=== PATIENT | male | born 1950 | race Caucasian/White ===

== ENCOUNTER → 2020-03-30 14:14 | Outpatient (BNVA) | payer BC, MEDICARE, SELFPAY | PROVIDERS: PCP Internal Medicine Medical Oncology; Referring Provider Internal Medicine Medical Oncology; Visit Provider Urology | DX: N40.1 Benign prostatic hyperplasia with lower urinary tract symptoms (principal); N13.8 Other obstructive and reflux uropathy | CPT/HCPCS: 51798 ==

== ENCOUNTER 2021-03-19 07:08 | Outpatient (REF) | payer BC, MEDICARE, SELFPAY ==
[2021-03-19 07:33] LABS: MANUAL DIFF FLAG NO
[2021-03-19 07:46] LABS: Basophils Absolute Auto 0.1 X10*3/uL (0.0-0.2); Basophils Percent Auto 0.9 % (0-2); Eosinophils Absolute Auto 0.2 X10*3/uL (0.0-0.4); Eosinophils Percent Auto 2.9 % (0-4); Hematocrit 45.3 % (42-52); Hemoglobin 15.4 g/dl (14.0-18.0); Imm Gran Abs Auto 0.02 X10*3/uL (0.00-0.03); Imm Gran Pct Auto 0.3 % (0.0-0.4); Lymphocytes Absolute Auto 1.5 X10*3/uL (1.2-4.9); Lymphocytes Percent Auto 22.7 % (20-40); Mean Corpuscular Hemoglobin 30.2 pg (27.0-33.0); Mean Corpuscular Volume 88.8 fL (80-98); Mean Platelet Volume 9.8 fL (9.4-12.4); Monocytes Absolute Auto 0.8 X10*3/uL (0.1-1.2); Monocytes Percent Auto 11.3 % (2-11); Neutrophils Absolute Auto 4.1 X10*3/uL (2.0-8.3); Neutrophils Percent Auto 61.9 % (45-73); Platelet Count 222 X10*3/uL (160-400); Red Cell Distribution Width 12.6 % (11.0-16.0); White Blood Count 6.7 X10*3/uL (4.8-10.8)
[2021-03-19 08:17] LABS: Alanine Aminotransferase 28 U/L (0-40); Alkaline Phosphatase 61 U/L (39-117); Anion Gap 10 (12-20); Aspartate Amino Transferase 26 U/L (5-37); Bilirubin Total 0.9 mg/dL (0.0-1.0); Blood Urea Nitrogen 17 mg/dL (9-16); Calcium 8.9 mg/dL (8.4-10.2); Carbon Dioxide 26 mmol/L (22-29); Chloride 105 mmol/L (96-108); Cholesterol 143 mg/dL; Estimated Glomerular Filt Rate > 60; Glucose Fasting 106 mg/dL (60-99); HDL Cholesterol 37 mg/dL; LDL Cholesterol Calculated 95 mg/dl; Sodium 137 mmol/L (135-145); Total Protein 6.8 g/dL (6.5-8.0); Triglycerides 59 mg/dL
[2021-03-19 08:37] LABS: PSA,Total (Free>4and<10) 2.35 ng/mL (0.00-4.00)
== END 2021-03-19 07:09 | disposition home or self-care (01) ==
LOC: HO.LAB 07:08
PROVIDERS: Absent Provider Urology; PCP Internal Medicine Medical Oncology; Visit Provider Internal Medicine Medical Oncology
DX: N40.1 Benign prostatic hyperplasia with lower urinary tract symptoms (principal); N13.8 Other obstructive and reflux uropathy; E78.5 Hyperlipidemia, unspecified; E66.3 Overweight; Z12.5 Encounter for screening for malignant neoplasm of prostate
CPT/HCPCS: 36415; 80053; 80061; 84153; 85025

== ENCOUNTER → 2021-03-29 09:51 | Outpatient (BNVA) | payer BC, MEDICARE, SELFPAY | PROVIDERS: PCP Internal Medicine Medical Oncology; Visit Provider Urology ==

== ENCOUNTER → 2021-05-15 15:26 | Outpatient (BNVA) | payer BC, MEDICARE, SELFPAY | PROVIDERS: PCP Internal Medicine Medical Oncology; Visit Provider Urology ==

== ENCOUNTER → 2021-09-18 14:58 | Outpatient (REF) | payer BC, MEDICARE, SELFPAY ==
--- NOTE | 2021-09-18 15:02 | HM_ITS ---
Conclusion: 1. Patient was monitored for total period of 3 days and 11 hours 2. Baseline rhythm is normal sinus rhythm with average heart of 71 beats per minute 3. No significant pauses or bradycardia noted 4. 8 short runs of supra tachycardia, longest lasting 10 beats 5. Total of 1045 PACs accounting for 0.34% total burden account for occasional PACs 6. No patient reported events MTDD
== END ==
LOC: HO.CARD 14:58
PROVIDERS: PCP Internal Medicine Medical Oncology; Visit Provider Internal Medicine Medical Oncology
DX: R00.1 Bradycardia, unspecified (principal); I48.20 Chronic atrial fibrillation, unspecified
CPT/HCPCS: 93242

== ENCOUNTER → 2022-07-16 09:18 | Outpatient (BNVA) | payer BC, SELFPAY | PROVIDERS: PCP Internal Medicine Medical Oncology; Visit Provider Urology | DX: N40.1 Benign prostatic hyperplasia with lower urinary tract symptoms (principal); Z12.5 Encounter for screening for malignant neoplasm of prostate; R33.9 Retention of urine, unspecified; N52.9 Male erectile dysfunction, unspecified | CPT/HCPCS: 51798 ==

== ENCOUNTER 2022-08-08 07:17 | Outpatient (REF) | payer BC, SELFPAY ==
[2022-08-08 07:28] LABS: MANUAL DIFF FLAG NO
[2022-08-08 07:46] LABS: Basophils Percent Auto 0.5 % (0-2); Eosinophils Absolute Auto 0.2 X10*3/uL (0.0-0.4); Eosinophils Percent Auto 2.2 % (0-4); Hematocrit 44.4 % (42.0-52.0); Hemoglobin 14.9 g/dl (14.0-18.0); Imm Gran Abs Auto 0.03 X10*3/uL (0.00-0.03); Imm Gran Pct Auto 0.4 % (0.0-0.4); Lymphocytes Absolute Auto 3.3 X10*3/uL (1.2-4.9); Lymphocytes Percent Auto 45.1 % (20-40); Mean Corpuscular HGB Conc 33.6 g/dl (31.0-36.0); Mean Corpuscular Hemoglobin 30.1 pg (27.0-33.0); Mean Corpuscular Volume 89.7 fL (80.0-98.0); Mean Platelet Volume 9.9 fL (9.4-12.4); Monocytes Absolute Auto 0.7 X10*3/uL (0.1-1.2); Monocytes Percent Auto 9.3 % (2-11); Neutrophils Absolute Auto 3.1 x10*3/uL (2.0-8.3); Neutrophils Percent Auto 42.5 % (45-73); Platelet Count 218 X10*3/uL (160-400); Red Blood Count 4.95 X10*6/uL (4.60-5.80); Red Cell Distribution Width 13.4 % (11.0-16.0); White Blood Count 7.3 X10*3/uL (4.8-10.8)
[2022-08-08 08:28] LABS: Alanine Aminotransferase 36 U/L (0-40); Albumin Level 3.9 g/dL (3.5-5.0); Alkaline Phosphatase 63 U/L (39-117); Anion Gap 11 (12-20); Aspartate Amino Transferase 52 U/L (5-37); Bilirubin Total 1.2 mg/dL (0.0-1.0); Blood Urea Nitrogen 16 mg/dL (9-16); Calcium 8.6 mg/dL (8.4-10.2); Carbon Dioxide 26 mmol/L (22-29); Chloride 105 mmol/L (96-108); Cholesterol 145 mg/dL; Estimated Glomerular Filt Rate > 60; Glucose Fasting 105 mg/dL (60-99); HDL Cholesterol 34 mg/dL; LDL Cholesterol Calculated 98 mg/dl; Sodium 138 mmol/L (135-145); Total Protein 6.9 g/dL (6.5-8.0); Triglycerides 67 mg/dL
[2022-08-08 08:33] LABS: PSA,Total (Free>4and<10) 2.24 ng/mL (0.00-4.00)
[2022-08-08 08:39] LABS: Vitamin B12 335 pg/mL (200-900)
== END 2022-08-08 07:18 | disposition home or self-care (01) ==
LOC: HO.LAB 07:17
PROVIDERS: Urology; PCP Internal Medicine Medical Oncology; Visit Provider Internal Medicine Medical Oncology
DX: Z12.5 Encounter for screening for malignant neoplasm of prostate (principal); E78.5 Hyperlipidemia, unspecified; N40.1 Benign prostatic hyperplasia with lower urinary tract symptoms
CPT/HCPCS: 36415; 80053; 80061; 82607; 84153; 85025

== ENCOUNTER 2023-01-14 15:02 | Outpatient (AMB) | payer BC, SELFPAY ==
--- NOTE | 2023-01-14 15:05 | MHC.OFFVIS ---
Intake Intake Visit Reasons: 6m follow up Intake Note: Pt presents to the office today for a 6 month follow-up. Allergies Iodinated Contrast Media [IV CONTRAST] Allergy (Unknown, Verified 01/14/23 15:06) ABD EDEMA meperidine [From DEMEROL] Allergy (Unknown, Verified 01/14/23 15:06) DRY HEAVES penicillin V Allergy (Unknown, Verified 01/14/23 15:06) Unknown Penicillins [PENICILLINS] Allergy (Unknown, Verified 01/14/23 15:06) HIVES Cardiac Dye Allergy (Unknown, Uncoded 01/14/23 15:06) Unknown Medication List - Last Reconciled 01/14/23 by Perry Banegas MD atorvastatin 10 mg PO DAILY bisoprolol-hydrochlorothiazide 2.5-6.25 mg 1 tab PO DAILY sildenafil (Viagra) 100 mg PO DAILY PRN 30 days terazosin 5 mg PO DAILY HPI HPI Comments History of Present Illness Details Carter Lewis is a pleasant male. He is a patient of Dr Pinedo. He is seen for the following urologic conditions. - lower urinary tract symptoms - erectile dysfunction Bladder emptying stable Weak stream in the morning Prior bladder scan 130 cc current scan Lower Urinary Tract Symptoms: ? Current visit is for?further evaluation of, lower urinary tract symptoms, predominate obstructive symptoms, ?- symptoms controlled on terazosin - prior medications include finasteride - ceased due to side effects ? Current treatment includes?02/23 , medication, alpha himanshu, terazosin 5mg.? Prostate Symptom Score?02/23 , Mild (0-8), Bother 2.? Symptoms include?02/23 , incomplete emptying, weak stream, and are stable and are improving.? PSA?02/24 2.4, 03/28 2.3, 08/28 2.3 ? Prostate volume?30-50gm.? Erectile dysfunction Responsive to sildenafil Uses up to 200 mg on demand [facility] Medical History Atrial fibrillation Bladder outlet obstruction Chronic prostatitis Combined arterial insufficiency and corporo-venous occlusive erectile dysfunction Difficulty urinating Graves disease HTN (hypertension) Incomplete emptying of bladder Painful urination Weak urinary stream Surgical History History of surgery Social History Patient Tobacco Use Status: Never used Tobacco Review of Systems Const Denies chills and Denies fever(s) Card Reports no additional complaints and Denies syncope Resp Denies cough GI Denies abdominal pain and Denies heartburn Reports as per HPI and Denies change in libido Neuro Denies syncope Psych Denies change in libido Endo Denies change in libido Physical Exam Const General: cooperative, healthy appearing, comfortable and no acute distress Orientation/consciousness: patient oriented x3 HEENT Face and sinus: Yes normal facial exam Mouth: moist mucous membranes Neck Neck: Yes normal visual inspection, Yes full ROM and Yes trachea midline Chest Chest palpation & inspection: normal inspection of the chest Resp Effort & Inspection: normal respiratory effort, able to speak in complete sentences and no respiratory distress GI Inspection: Yes normal to inspection Back/Spine/Pelvis Cervical Spine: normal cervical lordosis Thoracic/Lumbar Spine: thoracic and lumbar spine normal to inspection Skin General skin exam: no rashes or lesions noted Neuro General: patient oriented x3, gait normal, tone normal and moves all extremities Extrem General: Yes normal to inspection and Yes capillary refill normal Assessment & Plan Assessment & Plan (1) Erectile dysfunction: Code(s): N52.9 - Male erectile dysfunction, unspecified (2) BPH loc w urin obs/LUTS: Code(s): N40.1 - Benign prostatic hyperplasia with lower urinary tract symptoms Plan Six month follow-up PSA Orders: Orders Prostate Specific Antigen 6 Months N40.1 - Benign prostatic hyperplasia with lower urinary tract symptoms Medications: Changed From terazosin 5 mg PO DAILY 90 caps 0RF N40.1 - Benign prostatic hyperplasia with lower urinary tract symptoms To terazosin 5 mg PO BEDTIME 90 days 90 caps 1RF N40.1 - Benign prostatic hyperplasia with lower urinary tract symptoms Patient Instructions: Imaging studies, laboratory and physical exam results were discussed and reviewed in detail. No major barriers to patient understanding were identified. An opportunity to ask questions regarding the treatment plan was provided. All questions were answered. The patient expressed understanding and agreement with the above treatment plan. The patient is aware they should contact our office by phone for worsening of their current condition or the appearance of new urologic symptoms. Compliance is encouraged with any medications and followup testing that is ordered. It is a privilege to participate in the urologic care of your patient. If you have any questions or concerns regarding treatment for the above conditions, or other urologic issues, please do not hesitate to contact me. The office telephone contact is [phone]. This note is constructed using voice recognition software. While every effort has been made to ensure accuracy roentgenology teacher errors may have been included. Yours sincerely, Dr Perry Banegas MD, CHAR [facility] - Urology Providers of Expert, Compassionate Care for the Genitourinary System Coding Level of Care Code Est Pt Level 3 (78599) Diagnoses Erectile dysfunction N52.9 BPH loc w urin obs/LUTS N40.1
== END 2023-01-14 15:16 | disposition home or self-care (01) ==
PROVIDERS: Visit Provider Urology
DX: N52.9 Male erectile dysfunction, unspecified (principal); N40.1 Benign prostatic hyperplasia with lower urinary tract symptoms
CPT/HCPCS: 99213

== ENCOUNTER → 2023-01-14 15:02 | Outpatient (BNVA) | payer BC, SELFPAY | PROVIDERS: Visit Provider Urology ==

== ENCOUNTER 2023-07-29 07:05 | Outpatient (REF) | payer BC, SELFPAY ==
[2023-07-29 07:15] LABS: MANUAL DIFF FLAG NO
[2023-07-29 08:02] LABS: Basophils Absolute Auto 0.1 X10*3/uL (0.0-0.2); Basophils Percent Auto 0.9 % (0-2); Eosinophils Absolute Auto 0.5 X10*3/uL (0.0-0.4); Eosinophils Percent Auto 5.8 % (0-4); Hematocrit 46.3 % (42.0-52.0); Hemoglobin 15.4 g/dl (14.0-18.0); Imm Gran Abs Auto 0.03 X10*3/uL (0.00-0.03); Imm Gran Pct Auto 0.4 % (0.0-0.4); Lymphocytes Percent Auto 38.8 % (20-40); Mean Corpuscular HGB Conc 33.3 g/dl (31.0-36.0); Mean Corpuscular Hemoglobin 30.7 pg (27.0-33.0); Mean Corpuscular Volume 92.2 fL (80.0-98.0); Mean Platelet Volume 10.3 fL (9.4-12.4); Monocytes Absolute Auto 0.7 X10*3/uL (0.1-1.2); Monocytes Percent Auto 8.5 % (2-11); Neutrophils Absolute Auto 3.5 x10*3/uL (2.0-8.3); Neutrophils Percent Auto 45.6 % (45-73); Platelet Count 228 X10*3/uL (160-400); Red Blood Count 5.02 X10*6/uL (4.60-5.80); Red Cell Distribution Width 12.7 % (11.0-16.0); White Blood Count 7.8 X10*3/uL (4.8-10.8)
[2023-07-29 08:24] LABS: Alanine Aminotransferase 34 U/L (0-40); Albumin Level 4.1 g/dL (3.5-5.0); Alkaline Phosphatase 54 U/L (39-117); Anion Gap 9 (12-20); Aspartate Amino Transferase 35 U/L (5-37); Bilirubin Total 0.8 mg/dL (0.0-1.0); Blood Urea Nitrogen 15 mg/dL (9-16); Calcium 9.5 mg/dL (8.4-10.2); Carbon Dioxide 31 mmol/L (22-29); Chloride 105 mmol/L (96-108); Cholesterol 142 mg/dL (<200); Estimated Glomerular Filt Rate > 60; Glucose Fasting 99 mg/dL (60-99); HDL Cholesterol 40 mg/dL (>40); LDL Cholesterol Calculated 90 mg/dL (<100); Sodium 141 mmol/L (135-145); Total Protein 7.2 g/dL (6.5-8.0); Triglycerides 63 mg/dL (<150)
[2023-07-29 08:41] LABS: Prostate Specific Antigen 2.26 ng/mL (<0.05-4.0)
== END 2023-07-29 07:06 | disposition home or self-care (01) ==
LOC: HO.LAB 07:05
PROVIDERS: PCP Internal Medicine Medical Oncology; Visit Provider Internal Medicine Medical Oncology
DX: Z00.00 Encounter for general adult medical examination without abnormal findings (principal); Z12.5 Encounter for screening for malignant neoplasm of prostate; N40.1 Benign prostatic hyperplasia with lower urinary tract symptoms; E66.3 Overweight; E78.5 Hyperlipidemia, unspecified
CPT/HCPCS: 36415; 80053; 80061; 84153; 85025

== ENCOUNTER 2023-08-19 13:12 | Outpatient (AMB) | payer BC, SELFPAY ==
--- NOTE | 2023-08-19 13:14 | A.OFFVIS_ITS ---
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 Intake Note: Patient presents today for a follow-up on PSA Meds- Terazosin, Sildenafil Allergies to Antibiotic- Penicillin Blood Thinner- None Post Void Residual: 26ml Manager Express Required: No Accompanied by: Self / Same As Patient Allergies Iodinated Contrast Media [IV CONTRAST] Allergy (Unknown, Verified 08/19/23 13:21) ABD EDEMA meperidine [From DEMEROL] Allergy (Unknown, Verified 08/19/23 13:21) DRY HEAVES penicillin V Allergy (Unknown, Verified 08/19/23 13:21) Unknown Penicillins [PENICILLINS] Allergy (Unknown, Verified 08/19/23 13:21) HIVES Cardiac Dye Allergy (Unknown, Uncoded 08/19/23 13:21) Unknown Medication List - Last Reconciled 08/19/23 by Perry Banegas MD atorvastatin 10 mg PO DAILY bisoprolol-hydrochlorothiazide 2.5-6.25 mg 1 tab PO DAILY sildenafil (Viagra) 100 mg PO DAILY PRN 30 days terazosin 5 mg PO BEDTIME 90 days HPI HPI Comments History of Present Illness Details Carter Lewis is a pleasant male. He is a patient of Dr Pinedo. He is seen for the following urologic conditions. - lower urinary tract symptoms - erectile dysfunction Bladder emptying stable Continues with terazosin Prior bladder scan 130 cc current scan 30 cc Refill medications Lower Urinary Tract Symptoms: ? Current visit is for?further evaluation of, lower urinary tract symptoms, predominate obstructive symptoms, ?- symptoms controlled on terazosin - prior medications include finasteride - ceased due to side effects ? Current treatment includes?02/23 , medication, alpha himanshu, terazosin 5mg.? Prostate Symptom Score?02/23 , Mild (0-8), Bother 2.? Symptoms include?02/23 , incomplete emptying, weak stream, and are stable and are improving.? PSA?02/24 2.4, 03/28 2.3, 08/28 2.3 ? Prostate volume?30-50gm.? Erectile dysfunction Responsive to sildenafil Uses up to 200 mg on demand PFSH Medical History Painful urination Difficulty urinating Graves disease Atrial fibrillation HTN (hypertension) Combined arterial insufficiency and corporo-venous occlusive erectile dysfunction Chronic prostatitis Incomplete emptying of bladder Bladder outlet obstruction Weak urinary stream Surgical History History of surgery Social History Patient Tobacco Use Status: Never used Tobacco Review of Systems Const Denies chills and Denies fever(s) Card Reports no additional complaints and Denies syncope Resp Denies cough GI Denies abdominal pain and Denies heartburn Reports as per HPI and Denies change in libido Neuro Denies syncope Psych Denies change in libido Endo Denies change in libido Physical Exam Const General: cooperative, healthy appearing, comfortable and no acute distress Orientation/consciousness: patient oriented x3 HEENT Face and sinus: Yes normal facial exam Mouth: moist mucous membranes Neck Neck: Yes normal visual inspection, Yes full ROM and Yes trachea midline Chest Chest palpation & inspection: normal inspection of the chest Resp Effort & Inspection: normal respiratory effort, able to speak in complete sentences and no respiratory distress GI Inspection: Yes normal to inspection Back/Spine/Pelvis Cervical Spine: normal cervical lordosis Thoracic/Lumbar Spine: thoracic and lumbar spine normal to inspection Skin General skin exam: no rashes or lesions noted Neuro General: patient oriented x3, gait normal, tone normal and moves all extremities Extrem General: Yes normal to inspection and Yes capillary refill normal Office Procedures Post Void Residual Post Residual Void Post Void Residual (PVR): 26 15301-Pjrf Void Residual by ultrasound Assessment & Plan Assessment & Plan (1) Erectile dysfunction: Code(s): N52.9 - Male erectile dysfunction, unspecified (2) Incomplete bladder emptying: Code(s): R33.9 - Retention of urine, unspecified (3) BPH loc w urin obs/LUTS: Code(s): N40.1 - Benign prostatic hyperplasia with lower urinary tract symptoms Plan Twelve month follow-up PVR Orders: Orders AMB Post Void Residual by ultrasound Today R33.9 - Retention of urine, unspecified Medications: Refilled sildenafil (Viagra) administer 30 minutes to 4 hours before activity 100 mg PO DAILY PRN 30 tabs 1RF sexual activity 30 days terazosin 5 mg PO BEDTIME 90 caps 3RF 90 days N40.1 - Benign prostatic hyperplasia with lower urinary tract symptoms Patient Instructions: Imaging studies, laboratory and physical exam results were discussed and reviewed in detail. No major barriers to patient understanding were identified. An opportunity to ask questions regarding the treatment plan was provided. All questions were answered. The patient expressed understanding and agreement with the above treatment plan. The patient is aware they should contact our office by phone for worsening of their current condition or the appearance of new urologic symptoms. Compliance is encouraged with any medications and followup testing that is ordered. It is a privilege to participate in the urologic care of your patient. If you have any questions or concerns regarding treatment for the above conditions, or other urologic issues, please do not hesitate to contact me. The office telephone contact is [phone]. This note is constructed using voice recognition software. While every effort has been made to ensure accuracy avionics systems repairer errors may have been included. Yours sincerely, Dr Perry Banegas MD, [facility] - Urology Providers of Expert, Compassionate Care for the Genitourinary System Coding Level of Care Code Est Pt Level 3 (70773) Diagnoses Erectile dysfunction N52.9 Incomplete bladder emptying R33.9 BPH loc w urin obs/LUTS N40.1 CPT Codes Post Residual Void - PVR CPT Code: 53784-Muqd Void Residual by ultrasound ([id number])
== END 2023-08-19 13:38 | disposition home or self-care (01) ==
PROVIDERS: PCP Internal Medicine Medical Oncology; Visit Provider Urology
DX: N52.9 Male erectile dysfunction, unspecified (principal); R33.9 Retention of urine, unspecified; N40.1 Benign prostatic hyperplasia with lower urinary tract symptoms
CPT/HCPCS: 99213

== ENCOUNTER → 2023-08-19 13:12 | Outpatient (BNVA) | payer BC, SELFPAY | PROVIDERS: PCP Internal Medicine Medical Oncology; Visit Provider Urology | DX: N52.9 Male erectile dysfunction, unspecified (principal); N40.1 Benign prostatic hyperplasia with lower urinary tract symptoms; N13.8 Other obstructive and reflux uropathy; R33.8 Other retention of urine | CPT/HCPCS: 51798 ==

== ENCOUNTER 2024-09-16 14:19 | Outpatient (AMB) | payer BC, SELFPAY ==
--- NOTE | 2024-09-16 14:32 | MHC.OFFVIS ---
Intake Visit Reasons: 1yr/PVR Intake Note: Patient is present for 1Y/PVR Urology Medication:SILDENAFIL,TERAZOSIN Antibiotic Allergy:PENICILLINS Blood Thinner:NONE TODAY'S PVR:34ML'S Research Technologist Required: No Allergies Iodinated Contrast Media [IV CONTRAST] Allergy (Unknown, Verified 09/16/24 14:33) ABD EDEMA meperidine [From DEMEROL] Allergy (Unknown, Verified 09/16/24 14:33) DRY HEAVES penicillin V Allergy (Unknown, Verified 09/16/24 14:33) Unknown Penicillins [PENICILLINS] Allergy (Unknown, Verified 09/16/24 14:33) HIVES Cardiac Dye Allergy (Unknown, Uncoded 09/16/24 14:33) Unknown HPI Comments Details: Carter Lewis is a pleasant male. He is a patient of Dr Pinedo. He is seen for the following urologic conditions. - lower urinary tract symptoms - erectile dysfunction Bladder emptying stable Continues with terazosin and sildenafil for erections Current bladder scan 35 cc Urinary Symptoms Review - Patient exhibits low urinary tract symptoms. - Bladder appears to be emptying effectively. - Urinary analysis from dipstick testing shows no abnormalities. - Patient has been using terazosin and reports good results. Lower Urinary Tract Symptoms: ? Current visit is for?further evaluation of, lower urinary tract symptoms, predominate obstructive symptoms, ?- symptoms controlled on terazosin - prior medications include finasteride - ceased due to side effects ? Current treatment includes?02/23 , medication, alpha himanshu, terazosin 5mg.? Prostate Symptom Score?02/23 , Mild (0-8), Bother 2.? Symptoms include?02/23 , incomplete emptying, weak stream, and are stable and are improving.? PSA?02/24 2.4, 03/28 2.3, 08/28 2.3, 08/01 2.3 ? Prostate volume?30-50gm.? Erectile dysfunction Responsive to sildenafil Uses up to 200 mg on demand PFSH Medical History Painful urination Difficulty urinating Graves disease Atrial fibrillation HTN (hypertension) Combined arterial insufficiency and corporo-venous occlusive erectile dysfunction Chronic prostatitis Incomplete emptying of bladder Bladder outlet obstruction Weak urinary stream Surgical History History of surgery Social History Patient Tobacco Use Status: Never used Tobacco Review of Systems Const Denies chills and Denies fever(s) Card Reports no additional complaints and Denies syncope Resp Denies cough GI Denies abdominal pain and Denies heartburn Reports as per HPI and Denies change in libido Neuro Denies syncope Psych Denies change in libido Endo Denies change in libido Physical Exam Const General: cooperative, healthy appearing, comfortable and no acute distress Orientation/consciousness: patient oriented x3 HEENT Face and sinus: Yes normal facial exam Mouth: moist mucous membranes Neck Neck: Yes normal visual inspection, Yes full ROM and Yes trachea midline Chest Chest palpation & inspection: normal inspection of the chest Resp Effort & Inspection: normal respiratory effort, able to speak in complete sentences and no respiratory distress GI Inspection: Yes normal to inspection Back/Spine/Pelvis Cervical Spine: normal cervical lordosis Thoracic/Lumbar Spine: thoracic and lumbar spine normal to inspection Skin General skin exam: no rashes or lesions noted Neuro General: patient oriented x3, gait normal, tone normal and moves all extremities Extrem General: Yes normal to inspection and Yes capillary refill normal Office Procedures Post Void Residual Post Residual Void Post Void Residual (PVR): 34 [id number]-Tmew Void Residual by ultrasound Assessment & Plan Assessment & Plan (1) Weak urinary stream: Code(s): R39.12 - Poor urinary stream Category: Medical (2) Erectile dysfunction: Code(s): N52.9 - Male erectile dysfunction, unspecified Category: Medical Plan Plan Continue terazosin for lower urinary tract symptom management. Refill sildenafil 200 mg for erectile dysfunction, sent to [facility]. Order PSA test for next year with an annual follow-up. Efficient management noted; no new symptoms. Next appointment scheduled in 12 months or per any new developments. Discussion Notes The consultation covered the patient's effective response to terazosin for managing lower urinary tract symptoms and sildenafil for erectile dysfunction. I reviewed the benefits of continuing the current dosages and timing. For future evaluations, a PSA test was ordered for the following year to monitor prostate health, with the option for cancellation if already performed by the patient's primary care physician. We discussed that the patient's medications would be refilled promptly and reminders for the follow-up were confirmed. Patient Instructions - Continue taking terazosin as prescribed. - Use sildenafil 200 mg on demand for erectile dysfunction. - Await notification for PSA test in the next year. - The refill for sildenafil has been sent to the [facility] pharmacy. - Follow up in one year for re-evaluation unless new symptoms arise. - Contact the office with any changes in urinary symptoms or if issues arise with medication. Orders: Orders AMB Urinalysis Automated Today Z13.9 - Encounter for screening, unspecified Prostate Specific Antigen 12 Months N40.1 - Benign prostatic hyperplasia with lower urinary tract symptoms Patient Instructions: This note is constructed using voice recognition software. While every effort has been made to ensure accuracy mobile sales assistant errors may have been included. Imaging studies, laboratory and physical exam results were discussed and reviewed in detail. No major barriers to patient understanding were identified. An opportunity to ask questions regarding the treatment plan was provided. All questions were answered. The patient expressed understanding and agreement with the above treatment plan. The patient is aware they should contact our office by phone for worsening of their current condition or the appearance of new urologic symptoms. Compliance is encouraged with any medications and followup testing that is ordered. It is a privilege to participate in the urologic care of your patient. If you have any questions or concerns regarding treatment for the above conditions, or other urologic issues, please do not hesitate to contact me. The office telephone contact is [phone]. Sincerely, Dr Perry Banegas MD, [facility] - Urology Compassionate Specialist Care for the Genitourinary System Coding Level of Care Code Est Pt Level 4 (93486) Complex EM visit Add On G2211 Diagnoses Weak urinary stream R39.12 Erectile dysfunction N52.9 CPT Codes Post Residual Void - PVR CPT Code: 04714-Orix Void Residual by ultrasound ([id number])
--- OUTSIDE RECORDS SUMMARY | 2024-09-16 14:40 | XMS_ITS ---
Author Organization Ryan Pinedo III, MD Address [address] [place] [address] Care Team Providers Care Personnel Specialist Name Role Phone Ryan Pinedo Primary Care Provider Allergies Allergen (clinical drug ingredient) Drug/Non Drug Allergy documented on EMR Reaction Allergy Type Onset Date Status Penicillin Unknown Drug Allergy Active Gadolinium and/or gadolinium compound (FN) Gadolinium Derivatives Unknown Drug Allergy Activ e meperidine Demerol Unknown Drug Allergy Active REASON FOR VISIT Annual Exam Medications Medication SIG (Take, Route, Frequency, Duration) Notes Start Date End Date Status Terazosin HCl 5 MG 1 capsule at bedtime Orally Once a day Active Bisoprolol-hydroCHLOROthiaz faisal 2.5-6.25 MG TAKE 1 TABLET BY MOUTH ONCE DAILY Active dexAMETHasone 4 MG 1 tablet Orally ever y 12 hrs 08/07/2021 Active Atorvastatin Calcium 10 MG TAKE 1 TABLET BY MOUTH ONCE DAILY Active Aspirin 81mg 1 tablet once a day Active Nehalem 3 1000 MG 1 capsule with a jose e l Orally Once a day Active Vitamin B 12 100 MCG as directed Orally Active Finasteride 5 MG 1 tablet Orally Once a day Active Clotrimazole-Betamethasone 1-0.05 % 1 application to affected area Externally Twice a day 03/22/2018 Active Social History Tobacco Use: Social History Observation Description Date Details (start date - stop date) Never Smoker NA - NA Sex Assigned At : Social History Observation Description Sex Assigned At Male Tobacco Use/Smoking Question Answer Notes Patient is a nonsmoker Additional Findings: Tobacco Non-User Aggressive non-smoker Vital Signs Temperature 97.0 degrees Fahrenheit 04/15/20 24 Blood pressure systolic 135 mm Hg 04/15/20 24 Blood pressure diastolic 80 mm Hg 024 Heart Rate 70 /min 04/15/2024 Height 74 in 04/15/2024 Weight 210 lbs 04/15/2024 BMI 26.96 kg/m2 04/15/2024 Encounters Encounter Location Date Provider Diagnosis Ryan Pinedo III, MD [address] [place] [address] [place] [address] 04/15/2024 Ryan Pinedo Hyperlipidemia E78.5 ; History of atrial fibrillation Z86.79 ; Benign prostatic hyperplasia with lower urinary tract symptoms N40.1 ; Overweight E66.3 and Graves disease E05.00 Assessments Encounter Date Diagnosis (ICD Code) Assessment Notes Treat ment Notes Treatment Clinical Notes 04/15/2024 Hyperlipidemia (ICD-10 - E78.5) His lipids are currently stable and no change in his medications was made today. 04/15/2024 History of atrial fibrillation (ICD-10 - Z86.79) He is in regular sinus rhythm today. He has had a cardiac ablation. 04/15/2024 Benign prostatic hyperplasia with lower urinary tract symptoms (ICD-10 - N40.1) He rises from sleep once a night to urinate on the average. We have discussed lifestyle modifications he can make to reduce nocturia. 04/15/2024 Overweight (ICD-10 - E66.3) His body mass index is 26. We have discussed diet and nutrition. We made a plan to lose weight at a rate of one half of a pound per week. 04/15/2024 Graves disease (ICD-10 - E05.00) Thyroid function tests will be done periodically. He has been compliant with his medication. He appears to be euthyroid. Plan Of Treatment Medication Medication Name Sig Start Date Stop Date Notes Terazosin HCl 5 MG 1 capsule at bedtime Orally Once a day Bisoprolol-hydroCHLOROthiazi de 2.5-6.25 MG TAKE 1 TABLET BY MOUTH ONCE DAILY dexAMETHasone 4 MG 1 tablet Orally every 12 hrs 08/07/2021 Atorvastatin Calcium 10 MG TAKE 1 TABLET BY MOUTH ONCE DAILY Aspirin 81mg 1 tablet once a day Nehalem 3 1000 MG 1 capsule with a jose e l Orally Once a day Vitamin B 12 100 MCG as directed Orally Finasteride 5 MG 1 tablet Orally Once a day Clotrimazole-Betamethasone 1-0.05 % 1 application to affected area Externally Twice a day 03/22/2018 Pending Test Test Name Order Date PROFILE, FASTING (COMPREHENSIVE METABOLI C) 04/15/2024 PSA, TOTAL 04/15/2024 CBC WITH AUTO DIFF 04/15/2024 Lipid Panel 04/15/2024 Next Appt Details Follow Up: 4 Months, 3 month s, Reason: OV, Routine check-up Provider Name:Ryan Pinedo, 10/07/2024 01:45:00 PM, [address] [facility] [address], [place], [address], Provider Name:Ryan Pinedo, 04/21/2025 01:30:00 PM, [address] [facility], [place], [address], Progress Notes * Carter SAHU FDOB:1950 (73 yo M)Acc No.[id number]:04/15/2024 Progress Notes Patient:?Carter SAHU Provider:?Ryan Pinedo MD :1950???Age:73 Y???Sex:Male Jesus e:04/15/2024 Address:[address] [place] [address] [id number] Subjective: * Chief Complaints: * ???Annual Exam * HPI: ???Depression Screening:?PHQ-9?Little interest or pleasure in doing things?Not at all ?Feeling down, depressed, or hopeless?Not at all ?Trouble falling or staying asleep, or sleeping too much?Not at all ?Feeling tired or having little energy?Not at all ?Poor appetite or overeating?Not at all ?Feeling bad about yourself or that you are a failure, or have let yourself or your family down?Not at all ?Trouble concentrating on things, such as reading the newspaper or watching television?Not at all ?Moving or speaking so slowly that other people could have noticed; or the opposite, being so fidgety or restless that you have been moving around a lot more than usual?Not at all ?Thoughts that you would be better off or of hurting yourself in some way?Not at all ?Total Score?0 ???COVID-19 Screening:?Questions?Have you experienced fever, chills, cough, sore throat, shortness of breath, difficulty breathing, muscle aches, loss of taste or smell??No ?Have you been exposed to the virus within the last 10 days??No ?Have you travelled internationally in the last 10 days??No ?Have you been exposed to COVID-19 in the past??Yes ???Fall Risk Screening:?Fall History?Have you had any falls with injury in the past year??No ?Have you had two or more falls in the past year??No ?Fall Risk Assessment:?No falls in the past year ???SDOH Questions:?SDOH Questions?In the past year have you been worried about losing your housing??No ?In the past year have you or any family members you live with been unable to get any of the following when it was really needed? Check all that apply:?None ???:?The patient, a 73-year-old male, presented to the clinic for a routine check-up. He reported feeling healthy and had no significant complaints. He mentioned that he had almost passed out twice in the past, which was thought to be either heat-related or due to medication. However, he has not had any similar episodes since then. The patient also mentioned that he had a colonoscopy five years ago and is due for another one soon. He has been getting colonoscopies every five years due to a history of adenomatous polyps. The patient also has a history of cardiac ablation done? years ago. Because of palpitations, after his last visit he had a Holter monitor that showed no significant abnormalities. Blood work done April 13, 2024 showed white count 6.8 hematocrit 46.6 platelets 207 glucose 96 BUN 12 creatinine 0.8 for total cholesterol 140 triglycerides 70 HDL 42 LDL 84. * ROS:?General/Constitutional:?pain?only normal aches and pains.?Chills?denies.?Fatigue?admits.?Fever?denies.?ENT:?Decreased hearing?denies.?Respiratory:?Cough?denies.?Cardiovascular:?Chest pain with exertion?denies.?Dyspnea on exertion?denies.?Shortness of breath?denies.?Gastrointestinal:?Constipation?occasional.?Decreased appetite?denies.?Diarrhea?denies.?Heartburn?denies.?Nausea?denies.?Rectal bleeding?denies.?Vomiting?denies.?Hematology:?bruising?denies.?petechiae?denies.?Swollen glands?none have been noted.?Genitourinary:?Frequent urination?once a night.?Musculoskeletal:?Muscle aches?denies.?Painful joints?denies.?Sciatica?denies.?Weakness?denies.?Skin:?Itching?denies.?Rash?denies.?Skin lesion(s)?denies.?Neurologic:?Difficulty speaking?denies.?Dizziness?denies.?Headache?denies.?Low back pain?denies.?Psychiatric:?Depressed mood?denies.? * Medical History:? * Surgical History:?colonoscop y, [facility], 05/2014No history * Hospitalization/Major Diagno stic Procedure:?No history * Family History:?Father: dece ased 89 yrs, cardiac disease.?Mother: 88 yrs, congestive heart failure, diabetes mellitus, artial fibrillation,catracts, had cacncerous node removed from left breast, diagnosed with DM, Cancer.?1 brother(s) , 1 sister(s) . .? A brother has atrial fibrillation and thyroid disease. He is but has no children. * Social History:?Tobacco Use:?Tobacco Use/Smoking?Patient is a?nonsmoker ?Additional Findings: Tobacco Non-User?Aggressive non-smoker ???He was born in [place]. He has been happily for 20 years. He has no children. 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 * Medications:?TakingAtorvasta tin Calcium 10 MG Tablet TAKE 1 TABLET BY MOUTH ONCE DAILY Terazosin HCl 5 MG Capsule 1 capsule at bedtime Orally Once a day Nehalem 3 1000 MG Capsule 1 capsule with a meal Orally Once a day Vitamin B 12 100 MCG Lozenge as directed Orally Bisoprolol-hydroCHLOROthiazide 2.5-6.25 MG Tablet TAKE 1 TABLET BY MOUTH ONCE DAILY Aspirin 81mg tablet 1 tablet once a day Taking Atorvastatin Calcium 10 MG Tablet TAKE 1 TABLET BY MOUTH ONCE DAILY Taking Terazosin HCl 5 MG Capsule 1 capsule at bedtime Orally Once a day Taking Nehalem 3 1000 MG Capsule 1 capsule with a meal Orally Once a day Taking Vitamin B 12 100 MCG Lozenge as directed Orally Taking Bisoprolol-hydroCHLOROthiazide 2.5-6.25 MG Tablet TAKE 1 TABLET BY MOUTH ONCE DAILY Taking Aspirin 81mg tablet 1 tablet once a day Not-Taking/PRNClotrimazole-Betamethasone 1-0.05 % Cream 1 application to affected area Externally Twice a day Finasteride 5 MG Tablet 1 tablet Orally Once a day dexAMETHasone 4 MG Tablet 1 tablet Orally every 12 hrs Medication List reviewed and reconciled with the patientNot-Taking/PRN Clotrimazole-Betamethasone 1-0.05 % Cream 1 application to affected area Externally Twice a day Not-Taking/PRN Finasteride 5 MG Tablet 1 tablet Orally Once a day Not-Taking/PRN dexAMETHasone 4 MG Tablet 1 tablet Orally every 12 hrs Medication List reviewed and reconciled with the patient * Allergies:?DemerolPenicillin Gadolinium Derivativesno[Allergies Verified] Objective: * Vitals:?Ht: 74, Wt:210, BMI: 26.96, BP:135/80, HR:70, Temp:97.0, Wt-k.25. * Examination: ???General Examination: ?GENERAL APPEARANCE:?pleasant, well nourished, well developed, in no acute distress, calm and relaxed, overweight, man.?HEAD:?atraumatic, normocephalic.?EYES:?eomi, perrla, anicteric, conjugate.?EARS:?normal.?NOSE:?septum intact.?ORAL CAVITY:?normal, unremarkable.?NECK/THYROID:?no jugular venous distention, no carotid bruit, thyroid normal.?LYMPH NODES:?no enlarged lymph nodes,spleen normal.?SKIN:?no suspicious lesions, anicteric.?HEART:?no clicks, gallops, murmurs, or rubs, regular rhythm, S1, S2 normal, no s3, or vascular bruits.?LUNGS:?clear to auscultation .?BREASTS:??no masses palpable bilaterally.?ABDOMEN:?bowel sounds normal, no ascites, no organomegaly, no mass, overweight.?RECTAL EXAM:?Deferred to upcoming colonoscopy.?MUSCULOSKELETAL:?extremities unremarkable, no clubbing, cyanosis or edema.?PERIPHERAL PULSES:?normal.?NEUROLOGIC:?alert and oriented, cranial nerves 2-12 grossly intact, deep tendon reflexes 2+ symmetrical, motor strength normal upper and lower extremities, sensory exam intact.?PSYCH:?alert, oriented.? Assessment: * Assessment: 1.?History of atrial fibrill ation - Z86.79 (Primary)???Notes :He is in regular sinus rhythm today.? He has had a cardiac ablation.???2.?Hyperlipidemia - E78.5???Notes :His lipids are currently stable and no change in his medications was made today.???3.?Benign prostatic hyperplasia with lower urinary tract symptoms - N40.1???Notes :He rises from sleep once a night to urinate on the average.? We have discussed lifestyle modifications he can make to reduce nocturia.???4.?Overweight - E66.3???Notes :His body mass index is 26.? We have discussed diet and nutrition.? We made a plan to lose weight at a rate of one half of a pound per week.???5.?Graves disease - E05.00???Notes :Thyroid function tests will be done periodically. He has been compliant with his medication. He appears to be euthyroid.??? Plan: * Treatment: 2.?Benign prostatic hyperpla ventura with lower urinary tract symptoms?LAB: PROFILE, FASTING (COMPREHENSIVE METABOLIC) ?LAB: PSA, TOTAL ?LAB: CBC WITH AUTO DIFF ?LAB: Lipid Panel 3.?Overweight?LAB: PROFILE, FASTING (COMPREHENSIVE METABOLIC) ?LAB: PSA, TOTAL ?LAB: CBC WITH AUTO DIFF ?LAB: Lipid Panel 4.?Others? Continue Atorvastatin Calcium Tablet, 10 MG, TAKE 1 TABLET BY MOUTH ONCE DAILY;?Continue Terazosin HCl Capsule, 5 MG, 1 capsule at bedtime, Orally, Once a day;?Continue Nehalem 3 Capsule, 1000 MG, 1 capsule with a meal, Orally, Once a day;?Continue Vitamin B 12 Lozenge, 100 MCG, as directed, Orally;?Continue Clotrimazole-Betamethasone Cream, 1-0.05 %, 1 application to affected area, Externally, Twice a day;?Continue Finasteride Tablet, 5 MG, 1 tablet, Orally, Once a day;?Continue dexAMETHasone Tablet, 4 MG, 1 tablet, Orally, every 12 hrs;?Continue Bisoprolol-hydroCHLOROthiazide Tablet, 2.5-6.25 MG, TAKE 1 TABLET BY MOUTH ONCE DAILY;?Continue Aspirin tablet, 81mg, 1 tablet, once a day.?? * Procedure Codes:? * Preventive Medicine:? ??Counseling:?Care goal follow-up plan:?Counseling for abnormal BMI given?Yes ?Above Normal BMI Follow-up?Dietary management education, guidance, and counseling, Dietary needs education * Follow Up:?4 Months, 3 month s (Reason: OV, Routine check-up) * Images: * Sign off status: Completed true * Provider:?Ryan Pinedo MD Date:?01/2024 Generated for Angel rosenberg/Norma/eTransmitting on:?09/16/2024 02:40 PM EDT History and Physical Notes * HPI (History of Present Illness) Category Sub-Category Detail Notes Depression Screening PHQ-9 Little inte rest or pleasure in doing things: Not at all Feeling down, depressed, or hopeless: No t at all Trouble falling or staying asleep, or sl eeping too much: Not at all Feeling tired or having little energy: N ot at all Poor appetite or overeating: Not at all Feeling bad about yourself o r that you are a failure, or have let yourself or your family down: Not at all Trouble concentrating on thi ngs, such as reading the newspaper or watching television: Not at all Moving or speaking so slowly that other people could have noticed; or the opposite, being so fidgety or restless that you have been moving around a lot more than usual: Not at all Thoughts that you would be b mary off or of hurting yourself in some way: Not at all Total Score: 0 Fall Risk Screening Fall History Have you had any falls with injury in the past year?: No Have you had two or more falls in the year?: No Fall Risk Assessment:: No falls in the year COVID-19 Screening Questions Have you had any new onset fever, chills, cough, congestion, sore throat, shortness of breath, muscle aches?: No Have you been exposed to the virus withi n the last 10 days?: No Have you travelled internationally in [facility] last 10 days?: No Have you been exposed to COVID-19 in the past?: Yes SDOH Questions SDOH Questions In the past year have you been worried about losing your housing?: No In the past year have you or any family members you live with been unable to get any of the following when it was really needed? Check all that apply:: None Examination Category Sub-Category Detail Notes General Examination GENERAL APPEARANCE: pleasant , well nourished, well developed, in no acute distress, calm and relaxed, overweight, man HEAD: atraumatic, normocep halic EYES: eomi, perrla, anicte jamal, conjugate EARS: normal NOSE: septum intact NECK/THYROID: no jugular venous di stention, no carotid bruit, thyroid normal HEART: no clicks, gallops, murmurs, or rubs, regular rhythm, S1, S2 normal, no s3, or vascular bruits LUNGS: clear to auscultatio n ABDOMEN: bowel sounds normal, no ascites, no organomegaly, no mass, overweight NEUROLOGIC: alert and oriented, cranial nerves 2-12 grossly intact, deep tendon reflexes 2+ symmetrical, motor strength normal upper and lower extremities, sensory exam intact SKIN: no suspicious lesion s, anicteric PERIPHERAL PULSES: normal BREASTS: no masses palpable b ilaterally MUSCULOSKELETAL: extremities unremark able, no clubbing, cyanosis or edema LYMPH NODES: no enlarged lymph no ruperto,spleen normal RECTAL EXAM: Deferred to upcoming colonoscopy PSYCH: alert, oriented ORAL CAVITY: normal, unremarkable
--- OUTSIDE RECORDS SUMMARY | 2024-09-16 14:41 | XMS_ITS ---
Author Organization [facility] Address [address] [facility] [address] [place] [address] Care Team Providers Care Annual Campaign Manager Name Role Phone Shahida ORDONEZ, Ryan Primary Care Provider Unavailab Ryan Liz [phone] REASON FOR VISIT Patient presents today for a colon recall/due for colonocopy after november 2024 Encounters Encounter Location Date Provider Diagnosis [facility] [address] [place] [address] [place] [phone] 08/17/2024 Ryan Blakely Plan Of Treatment Next Appt Details Provider Name:Ryan Blakely , 12/30/2024 01:00:00 PM, [address] [place] [address], Suite [facility], [place], [address], Progress Notes * MARISABEL SAHU FDOB:1950 (73 yo M)Acc No.[id number]:08/17/2024 Progress Notes Patient:?MARISABEL SAHU Provider:?Ryan Blakely MD :1950???Age:73 Y???Sex:Male Jesus e:08/17/2024 Address:[address] [place], [place] [id number] Pcp:Ryan Pinedo MD Subjective: * Chief Complaints: * ???1. Patient presents today for a colon recall/due for colonocopy after november 2024. * Medical History:? Objective: * Vitals:? Assessment: Plan: * Treatment: * * The named appointment provid er may or may not be the originator of this progress note, and it is not deemed complete until electronically signed by the appointment provider. Sign off status: Pending * Provider:?Ryan Blakely MD Date:? 025 Generated for Angel rosenberg/Norma/Betito on:?09/16/2024 02:41 PM EDT
--- OUTSIDE RECORDS SUMMARY | 2024-09-16 14:41 | XMS_ITS ---
Author Organization Ryan Pinedo III, MD Address [address] [place] [address] Care Team Providers Care Manager Support Services Name Role Phone Ryan Pinedo Primary Care Provider REASON FOR VISIT Follow up Social History Sex Assigned At : Social History Observation Description Sex Assigned At Male Encounters Encounter Location Date Provider Diagnosis Ryan Pinedo III, MD [address] [place] [address] [place] [address] 08/19/2024 Ryan Pinedo Plan Of Treatment Next Appt Details Provider Name:Ryan Pinedo, 10/07/2024 01:45:00 PM, [address] [place] [address] [place], [address], Provider Name:Ryan Pinedo, 04/21/2025 01:30:00 PM, [address] [place] [address] [place], [address], Progress Notes * Carter SAHU FDOB:1950 (73 yo M)Acc No.[id number]:08/19/2024 Progress Notes Patient:?Carter SAHU Provider:?Ryan Pinedo MD :1950???Age:73 Y???Sex:Male Jesus e:08/19/2024 Address:[address] [facility] [id number] Subjective: * Chief Complaints: * ???1. Follow up. * Medical History:? Objective: * Vitals:? Assessment: Plan: * Treatment: * Images: * The named appointment provid er may or may not be the originator of this progress note, and it is not deemed complete until electronically signed by the appointment provider. Sign off status: Pending * Provider:?Ryan Pinedo MD Date:?08/06 Generated for Angel rosenberg/Norma/Betito on:?09/16/2024 02:40 PM EDT
--- OUTSIDE RECORDS SUMMARY | 2024-09-16 14:41 | XMS_ITS | Patient Health Record ---
Author Organization Ryan Pinedo III, MD Address [address] [place] [address] Care Team Providers Care Potline Monitor Name Role Phone Ryan Pinedo Primary Care Provider Allergies Allergen (clinical drug ingredient) Drug/Non Drug Allergy documented on EMR Reaction Allergy Type Onset Date Status Penicillin Unknown Drug Allergy Active Gadolinium and/or gadolinium compound (FN) Gadolinium Derivatives Unknown Drug Allergy Activ e meperidine Demerol Unknown Drug Allergy Active Reason For Referral No Information Medications Medication SIG (Take, Route, Frequency, Duration) Notes Start Date End Date Status Lincoln 3 1000 MG 1 capsule with a jose e l Orally Once a day Active Vitamin B 12 100 MCG as directed Orally Active Bisoprolol-hydroCHLOROthiaz faisal 2.5-6.25 MG TAKE 1 TABLET BY MOUTH EVERY DAY for 90 Active dexAMETHasone 4 MG 1 tablet Orally ever y 12 hrs 08/07/2021 Active Terazosin HCl 5 MG TAKE 1 CAPSULE BY [facility] EVERY DAY AT BEDTIME FOR 90 DAYS for 90 Active Finasteride 5 MG 1 tablet Orally Once a day Active Clotrimazole-Betamethasone 1-0.05 % 1 application to affected area Externally Twice a day 03/22/2018 Active Atorvastatin Calcium 10 MG TAKE 1 TABLET BY MOUTH ONCE DAILY Active Aspirin 81mg 1 tablet once a day Active Immunizations Vaccine Route Administration Date Status Comme nts Tetanus and Diphtheria Toxoids Adsorbed IM Intramuscular 01/30/2015 Administered COVID- 19 Vaccine Unknown 06/06/2020 Administered COVID- 19 Vaccine Unknown 07/04/2020 Administered COVID- 19 Vaccine Unknown 03/29/2021 Administered COVID- 19 Vaccine Unknown 03/16/2015 Administered Hepatitis B (20 and more) Unknown 04/20/2015 Administer ed COVID 19 Moderna Unknown 09/20/2021 Administered Influenza High Dose Quadrivalent Unknown 03/27/2022 Administered Influenza, quad Unknown 03/23/2023 Administered COVID Moderna Bivalent Unknown 04/22/2022 Administered COVID-19 Moderna SPIKEVAX Unknown 05/15/2023 Administer ed Monkeypox Vaccine Unknown 01/31/2022 Administered COVID-19 Moderna SPIKEVAX Unknown 05/15/2023 Administer ed COVID-19 Moderna SPIKEVAX Unknown 03/17/2024 Administer ed Influenza no Preserv 3 and > Unknown 03/16/2015 Administered Influenza no Preserv 3 and > Unknown 03/07/2016 Administered Social History Tobacco Use: Social History Observation Description Date Details (start date - stop date) Never Smoker NA - NA Sex Assigned At : Social History Observation Description Sex Assigned At Male Tobacco Use/Smoking Question Answer Notes Patient is a nonsmoker Additional Findings: Tobacco Non-User Aggressive non-smoker Alcohol Screen Question Answer Notes Did you have a drink containing alcohol in the p ast year? No Points 0 Interpretation Negative Problems Problem Type SNOMED Code ICD Code Onset Dates Problem Status W/U Status Risk Notes Problem 88919327 Hyperlipidemia (E78.5) Active confirmed His lipids are currently stable and no change in his medications was made today. Problem 240128081 Overweight (E66.3) Active confirmed His body mass index is 26. We have discussed diet and nutrition. We made a plan to lose weight at a rate of one half of a pound per week. Problem 93597374 Cervical radiculopathy (M54.12) Active confirmed The neck pain has resolved. He was advised to avoid heavy lifting and straining. Problem 098726090 Graves disease (E05.00) Active confirmed Thyroid function tests will be done periodically. He has been compliant with his medication. He appears to be euthyroid. Problem 3801225 Peyronie disease (N48.6) Active confirmed He says this is only a minor problem and does not affect his function. No treatment is needed today. He is going to see the neurologist next month. Problem 61668838 Bradycardia (R00.1) Active confirmed He has had no recent episodes of bradycardia and this problem has resolved. His pulse today was 62. Problem 211559045 History of atrial fibrillation (Z86.79) Active confirmed He is in regular sinus rhythm today. He has had a cardiac ablation. Problem 071070223 Benign prostatic hyperplasia with lower urinary tract symptoms (N40.1) Active confirmed He rises from sleep once a night to urinate on the average. We have discussed lifestyle modifications he can make to reduce nocturia. Vital Signs Heart Rate 70 /min 04/15/2024 Temperature 97.0 degrees Fahrenheit 04/15/2024 Blood pressure diastolic 80 mm Hg 04/15/2024 Height 74 in 04/15/2024 Blood pressure systolic 135 mm Hg 04/15/2024 Weight 210 lbs 04/15/2024 BMI 26.96 kg/m2 04/15/2024 Encounters Encounter Location Date Provider Diagnosis Ryan Pinedo III, MD [address] [place] [address] [place] [id number] 02/05/2024 Ryan Pinedo Overweight E66.3 ; Pre-syncope R55 ; Graves disease E05.00 ; Hyperlipidemia E78.5 ; History of atrial fibrillation Z86.79 ; Bradycardia R00.1 and Cervical radiculopathy M54.12 Ryan Pinedo III, MD [address] [place] [address] [place] [phone] 04/15/2024 Ryan Pinedo Hyperlipidemia E78.5 ; History of atrial fibrillation Z86.79 ; Benign prostatic hyperplasia with lower urinary tract symptoms N40.1 ; Overweight E66.3 and Graves disease E05.00 Rayn Pinedo III, MD [address] [place] [address] [place] [phone] 10/19/2023 Ryan Pinedo Assessments Encounter Date Diagnosis (ICD Code) Assessment Notes Treat ment Notes Treatment Clinical Notes 02/05/2024 Overweight (ICD-10 - E66.3) His BMI is 26. We discussed his weight loss strategy. We discussed his diet and nutrition. We made a plan to lose weight. 02/05/2024 Pre-syncope (ICD-10 - R55) The 2 episodes where he felt like he would pass out have not reoccurred. This could be a low blood sugar or bradycardia or cardiac arrhythmia. bea is going to have blood work and a Holter monitor to begin the evaluation. 04/15/2024 Hyperlipidemia (ICD-10 - E78.5) His lipids are currently stable and no change in his medications was made today. 04/15/2024 History of atrial fibrillation (ICD-10 - Z86.79) He is in regular sinus rhythm today. He has had a cardiac ablation. 02/05/2024 Graves disease (ICD-10 - E05.00) Thyroid function tests will be done periodically. He has been compliant with his medication. He appears to be euthyroid. 04/15/2024 Benign prostatic hyperplasia with lower urinary tract symptoms (ICD-10 - N40.1) He rises from sleep once a night to urinate on the average. We have discussed lifestyle modifications he can make to reduce nocturia. 02/05/2024 Hyperlipidemia (ICD-10 - E78.5) His lipids are currently well controlled and his weight is reasonable. No change in his medication was necessary today. 04/15/2024 Overweight (ICD-10 - E66.3) His body mass index is 26. We have discussed diet and nutrition. We made a plan to lose weight at a rate of one half of a pound per week. 02/05/2024 History of atrial fibrillation (ICD-10 - Z86.79) He continues in normal sinus rhythm. 04/15/2024 Graves disease (ICD-10 - E05.00) Thyroid function tests will be done periodically. He has been compliant with his medication. He appears to be euthyroid. 02/05/2024 Bradycardia (ICD-10 - R00.1) He has had no recent episodes of bradycardia and this problem has resolved. His pulse today was 62. 02/05/2024 Cervical radiculopathy (ICD-10 - M54.12) The neck pain has resolved. He was advised to avoid heavy lifting and straining. Plan Of Treatment Pending Test Test Name Order Date PROFILE, FASTING (COMPREHENSIVE METABOLI C) 03/25/2019 PROFILE, FASTING (COMPREHENSIVE METABOLI C) 03/02/2020 PROFILE, FASTING (COMPREHENSIVE METABOLI C) 02/05/2024 PROFILE, FASTING (COMPREHENSIVE METABOLI C) 11/11/2017 PROFILE, FASTING (COMPREHENSIVE METABOLI C) 09/08/2018 PROFILE, FASTING (COMPREHENSIVE METABOLI C) 08/11/2022 PROFILE, FASTING (COMPREHENSIVE METABOLI C) 03/28/2022 PROFILE, FASTING (COMPREHENSIVE METABOLI C) 03/22/2021 PROFILE, FASTING (COMPREHENSIVE METABOLI C) 07/31/2023 PROFILE, FASTING (COMPREHENSIVE METABOLI C) 11/23/2017 PROFILE, FASTING (COMPREHENSIVE METABOLI C) 10/24/2020 PROFILE, FASTING (COMPREHENSIVE METABOLI C) 04/03/2023 PROFILE, FASTING (COMPREHENSIVE METABOLI C) 04/15/2024 LIPID PANEL 10/24/2020 LIPID PANEL 03/25/2019 LIPID PANEL 03/02/2020 LIPID PANEL 11/11/2017 LIPID PANEL 09/08/2018 LIPID PANEL 08/11/2022 LIPID PANEL 11/23/2017 FREE T4 (FT4) 03/25/2019 TSH (THYROID STIMULATING HORMONE) 2017 TSH (THYROID STIMULATING HORMONE) 2018 B12 03/02/2020 B12 03/22/2021 PSA, TOTAL 04/03/2023 PSA, TOTAL 04/15/2024 PSA, TOTAL 10/24/2020 PSA, TOTAL 09/08/2018 PSA, TOTAL 11/11/2017 PSA, TOTAL 03/28/2022 CBC w DIFF 03/22/2021 CBC w DIFF 11/23/2017 CBC w DIFF 10/24/2020 CBC w DIFF 03/02/2020 CBC w DIFF 08/11/2022 CBC w DIFF 03/25/2019 CBC w DIFF 09/08/2018 CBC w DIFF 11/11/2017 CBC w DIFF 03/28/2022 D-DIMER 11/11/2017 FREE T3 (FT3) 11/11/2017 ROUTINE CULTURE 05/17/2019 Holter Monitor 09/06/2021 VITAMIN D 25-OH TOTAL 11/11/2017 CBC WITH AUTO DIFF 04/03/2023 CBC WITH AUTO DIFF 04/15/2024 CBC WITH AUTO DIFF 02/05/2024 CBC WITH AUTO DIFF 07/31/2023 Lipid Panel 07/31/2023 Lipid Panel 03/28/2022 Lipid Panel 03/22/2021 Lipid Panel 04/03/2023 Lipid Panel 04/15/2024 Lipid Panel 02/05/2024 ECG 3 day holter monitor 02/05/2024 Next Appt Details Provider Name:Ryan Pinedo, 10/07/2024 01:45:00 PM, [address] [place] [address] [address] [place], [facility] [place] [place], [address], Provider Name:Ryan Pinedo, 04/21/2025 01:30:00 PM, [address] [place] [address] [address], [place], [address], Insurance Providers Payer Name Payer Address Payer Phone Subscriber Number Group Number Insured Name Patient Relationship to Insured Coverage Start Date Coverage End Date [employer] [address] [place], [place] [id number] Carter Lewis Self - patient is the insured MEDICARE NGS [address] [place] [address] [id number] Part A only Carter Lewis Self - patient is the insured Medical (General) History Medical History History ICD Code atrial fibrillation graves disease 2 cardiac pathway ablations, last in 11/07 009 cellulitis right leg October 2015 [facility] Surgical History Surgery Date(Month/Year) colonoscopy, [facility], 05/2014 No history Hospitalization History Reason Date(Month/Year) No history
--- OUTSIDE RECORDS SUMMARY | 2024-09-16 14:42 | XMS_ITS ---
Author Organization Ryan Pinedo III, MD Address [address] [place] [address] Care Team Providers Care Bank Cashier Name Role Phone Ryan Pinedo Primary Care Provider [phone] REASON FOR VISIT annual exam Social History Sex Assigned At : Social History Observation Description Sex Assigned At Male Encounters Encounter Location Date Provider Diagnosis Ryan Pinedo III, MD [address] [place] [address] [place] [address] 04/06/2024 Ryan Pinedo Plan Of Treatment Next Appt Details Provider Name:Ryan Pinedo, 10/07/2024 01:45:00 PM, [address] [place] [address] [place], [address], Provider Name:Ryan Pinedo, 04/21/2025 01:30:00 PM, [address] [place] [address] [place], [address], Progress Notes * Carter SAHU FDOB:1950 (73 yo M)Acc No.[id number]:04/06/2024 Progress Notes Patient:?Carter SAHU Provider:?Ryan Pinedo MD :1950???Age:73 Y???Sex:Male Jesus e:04/06/2024 Address:[address] [phone] Subjective: * Chief Complaints: * ???1. Annual exam. * Medical History:? Objective: * Vitals:? Assessment: Plan: * Treatment: * Images: * The named appointment provid er may or may not be the originator of this progress note, and it is not deemed complete until electronically signed by the appointment provider. Sign off status: Pending * Provider:?Ryan Pinedo MD Date:?03/10 Generated for Angel rosenberg/Norma/Betito on:?09/16/2024 02:41 PM EDT
--- OUTSIDE RECORDS SUMMARY | 2024-09-16 14:42 | XMS_ITS | Patient Health Record ---
Author Organization [facility] Address [address] [place] [address] Care Team Providers Care Motorboat Operator Name Role Phone Ryan Pinedo MD Primary Care Provider Ryan Hooker Unavailable [phone] Allergies Allergen (clinical drug ingredient) Drug/Non Drug Allergy documented on EMR Reaction Allergy Type Onset Date Status penicillamine Penicillamine Unknown Drug Allergy Active meperidine Demerol Unknown Drug Allergy Active cardiac dye (uncoded) Unknown Allergy Active Reason For Referral No Information Medications Medication SIG (Take, Route, Frequency, Duration) Notes Start Date End Date Status Fish Oil 1000 MG 1 capsule Orally Onc e a day for 30 day(s) Active Aspir-Low 81 MG 1 tablet Orally Once a day for 30 day(s) Active Bisoprolol-hydroCHLOROthia zide 2.5-6.25 MG 1 tablet Orally Once a day Active Terazosin HCl 5 MG 1 capsule at bedtime Orally Once a day for 30 day(s) Active Lipitor 10 MG 1 tablet Orally Once a day for 30 day(s) Active Immunizations Vaccine Route Administration Date Status Comme nts Influenza Unknown 06/22/2019 Refused Social History Tobacco Use: Social History Observation Description Date Details (start date - stop date) Never Smoker NA - NA Tobacco Use/Smoking Question Answer Notes Patient is a nonsmoker Alcohol Screen Question Answer Notes Did you have a drink contain ing alcohol in the past year? Yes How often did you have a dri nk containing alcohol in the past year? 2 to 4 times a month (2 points) How many drinks did you have on a typical day when you were drinking in the past year? 1 or 2 drinks (0 point) How often did you have 6 or more drinks on one occasion in the past year? Never (0 point) Points 2 Interpretation Negative Section Notes: Nonsmoker; no sig alcohol Problems Problem Type SNOMED Code ICD Code Onset Dates Problem Status W/U Status Risk Notes Problem 800268085 Encounter for screening for malignant neoplasm of colon (Z12.11) Active confirmed Problem 507785623 History of adenomatous polyp of colon (Z86.010) Active confirmed Problem 442299149095443 Pre-procedural examination (Z01.818) Active confirmed Encounters Encounter Location Date Provider Diagnosis [facility] [address] [place] [address] 08/15/2024 Ryan Reddy Plan Of Treatment Future Test Test Name Order Date COLONOSCOPY 06/22/2019 Next Appt Details Provider Name:Ryan Blakely , 12/30/2024 01:00:00 PM, [address], [address], [place], [address], Insurance Providers Payer Name Payer Address Payer Phone Subscriber Number Group Number Insured Name Patient Relationship to Insured Coverage Start Date Coverage End Date [facility] [address] [place], [place] [id number] MARISABEL SAHU Self - patient is the insured Medical (General) History Medical History History ICD Code Atrial fibrillation--successful ablation > 10 yrs ago Denies IL,DM,CVA,Lung disease,renal dise ase Tubular adenomas removed by me in 2002 and 2008, then had a polyp removed by Dr. Garcia in 2013 HTN BPH Hyperlipidemia Surgical History Surgery Date(Month/Year) Left inguinal hernia repair Tonsillectomy
--- OUTSIDE RECORDS SUMMARY | 2024-09-16 14:42 | XMS_ITS ---
Author Organization [facility] Address [address] [place] [address] Care Team Providers Care Records And Tape Recordings Engineer Name Role Phone Shahida ORDONEZ, Ryan Primary Care Provider Unavailab Ryan Liz Unavailable [phone] REASON FOR VISIT R/S OV Encounters Encounter Location Date Provider Diagnosis [facility] [address] [place] [address] 08/15/2024 Ryan Blakely Plan Of Treatment Next Appt Details Provider Name:Ryan Blakely , 12/30/2024 01:00:00 PM, [address], [address], [place], [address], Progress Notes * MARISABEL SAHU FDOB:1950 (73 yo M)Acc No.[id number]:08/15/2024 Patient:?MARISABEL SAHU :1950???Age:73 Y???Sex:Male Address:[address] [place] [address] * true * Date:? Generated for Printi ng/Faelianeg/eTransmitting on:?09/16/2024 02:41 PM EDT
== END 2024-09-16 14:59 | disposition home or self-care (01) ==
LOC: HO.HUSH 14:19
PROVIDERS: PCP Internal Medicine Medical Oncology; Visit Provider Urology
DX: R39.12 Poor urinary stream (principal); N52.9 Male erectile dysfunction, unspecified; Z13.9 Encounter for screening, unspecified
CPT/HCPCS: 99214

== ENCOUNTER → 2024-09-16 14:19 | Outpatient (BNVA) | payer BC, SELFPAY | PROVIDERS: PCP Internal Medicine Medical Oncology; Visit Provider Urology | DX: R39.12 Poor urinary stream (principal); N52.9 Male erectile dysfunction, unspecified | CPT/HCPCS: 51798; 81003 ==

== ENCOUNTER 2024-12-20 14:27 | Outpatient (REF) | payer BC, SELFPAY | END 2024-12-20 14:28 | disposition home or self-care (01) | LOC: HO.LNP 14:27 | PROVIDERS: Visit Provider Internal Medicine Medical Oncology | DX: R21 Rash and other nonspecific skin eruption (principal) | CPT/HCPCS: 87168 ==

== ENCOUNTER 2025-02-03 08:30 | Day surgery (SDC) | payer BC, SELFPAY ==
--- OUTSIDE RECORDS SUMMARY | 2024-08-17 09:20 | XMS_ITS ---
Author Organization [facility] Address [address] [place] [id number] Care Team Providers Care Creative Guru Name Role Phone Ryan Pinedo MD Primary Care Provider UnavailRyan Richard [phone] REASON FOR VISIT Patient presents today for a colon recall/due for colonocopy after november 2024 Encounters Encounter Location Date Provider Diagnosis [facility] [address] [place] [id number] 08/17/2024 Ryan Blakely Plan Of Treatment Next Appt Details Provider Name:Ryan Blakely , 02/03/2025 09:30:00 AM, [address] [place] [address] , [place], [place], [phone], Progress Notes * ADELINAMARISABEL FDOB:1950 (74 yo M)Acc No.[id number]:08/17/2024 Progress Notes Patient: MARISABEL CLARKE Provider: Rose Blakely MD :1950 A ge:73 Y S ex:Male Date:08/17/2024 Address:[address] [place], [place] [id number] Pcp:Ryan Pinedo MD Subjective: * Chief Complaints: * 1 . Patient presents today for a colon recall/due for colonocopy after november 2024. * Medical History: Objective: * Vitals: Assessment: Plan: * Treatment: * * The named appointment provid er may or may not be the originator of this progress note, and it is not deemed complete until electronically signed by the appointment provider. Sign off status: Pending * Provider: Rose Blakely MD Date: 0 08/17/2024 Generated for Angel rosenberg/Norma/Betito on: 0 12/20/2024 01:22 PM EDT
--- OUTSIDE RECORDS SUMMARY | 2024-12-20 06:39 | XMS_ITS ---
Author Organization Ryan Pinedo III, MD Address [address] [place] [address] [place] [address] Care Team Providers Care Defence Force Senior Officer Name Role Phone Ryan Pinedo Primary Care Provider REASON FOR VISIT Appointment Request Social History Sex Assigned At : Social History Observation Description Sex Assigned At Male Encounters Encounter Location Date Provider Diagnosis Ryan Pindeo III, MD [address] [place] [address] [place] [address] 12/20/2024 Ryan Pinedo Plan Of Treatment Next Appt Details Provider Name:Ryan Pinedo, 12/20/2024 01:30:00 PM, [address] [place] [address] [place], [address], Provider Name:Ryan Pinedo, 04/21/2025 01:30:00 PM, [address] [place] [address] [place], [address], Progress Notes * Carter SAHU FDOB:1950 (74 yo M)Acc No.[id number]:12/20/2024 Patient: Jes Carter ANDINO :1950 A ge:74 Y S ex:Male Address:[address] [facility] [facility] [place] [address] * * Date:
[2025-02-01 14:30] VITALS: BMI 26.6
--- NOTE | 2025-02-02 09:11 | HO.ANESPROP2 ---
Documented by User: Jessica Urrutia NP 02/02/25 09:12 HPI - Anesthesia Eval Consult details Narrative: 74yo M for Colonoscopy Hx afib s/p abation >20 yrs ago - no OAC PMFSH Active Problems Active Problems: All Active Problems Erectile dysfunction (Acute) Incomplete bladder emptying (Acute) Screening PSA (prostate specific antigen) (Acute) BPH loc w urin obs/LUTS (Acute) Combined arterial insufficiency and corporo-venous occlusive erectile dysfunction (Acute) Weak urinary stream (Acute) Past Medical History Medical History Hyperlipidemia BPH (benign prostatic hyperplasia) Graves disease Atrial fibrillation HTN (hypertension) Combined arterial insufficiency and corporo-venous occlusive erectile dysfunction Chronic prostatitis Bladder outlet obstruction Surgical History Surgical History H/O colonoscopy History of cardiac radiofrequency ablation Hx of hernia repair History of tonsillectomy and adenoidectomy Social History Social History Patient Tobacco Use Status: Never used Tobacco Advance Directives: No Advance Directives Information Provided: Yes Meds Allergies Allergy/AdvReac Type Severity Reaction Status Date / Time Iodinated Contrast Media (IV Allergy Intermediate ABD EDEMA Verified 02/01/25 14:25 CONTRAST) meperidine (From DEMEROL) Allergy Intermediate DRY HEAVES Verified 02/01/25 14:25 Penicillins (PENICILLINS) Allergy Intermediate HIVES Verified 02/01/25 14:25 Home Medications ?Medication ?Instructions ?Recorded ?Confirmed ?Last Taken ?Type atorvastatin 10 mg tablet 10 mg PO DAILY 03/30/20 02/01/25 Unknown History bisoprolol 2.5 1 tab PO DAILY 03/29/21 02/01/25 Unknown History mg-hydrochlorothiazide 6.25 mg tablet aspirin 81 mg tablet,delayed 81 mg PO DAILY 02/01/25 02/01/25 Unknown History release Exam Height,Weight and Vital Signs: Height 6 ft 2 in Weight 93.894 kg Assessment and Plan Assessment Anesthesia Assessment: Chart Reviewed Documented by User: Burt Griffiths MD 02/03/25 08:39 PMF Past Medical History Medical History Hyperlipidemia BPH (benign prostatic hyperplasia) Graves disease Atrial fibrillation HTN (hypertension) Combined arterial insufficiency and corporo-venous occlusive erectile dysfunction Chronic prostatitis Bladder outlet obstruction Family History Family history of problems with anesthesia: No Surgical History Surgical History H/O colonoscopy History of cardiac radiofrequency ablation Hx of hernia repair History of tonsillectomy and adenoidectomy History of Problems with Anesthesia: No Social History Social History Patient Tobacco Use Status: Never used Tobacco Advance Directives: No Advance Directives Information Provided: Yes Meds Allergies Allergy/AdvReac Type Severity Reaction Status Date / Time Iodinated Contrast Media (IV Allergy Intermediate ABD EDEMA Verified 02/01/25 14:25 CONTRAST) meperidine (From DEMEROL) Allergy Intermediate DRY HEAVES Verified 02/01/25 14:25 Penicillins (PENICILLINS) Allergy Intermediate HIVES Verified 02/01/25 14:25 Home Medications ?Medication ?Instructions ?Recorded ?Confirmed ?Last Taken ?Type atorvastatin 10 mg tablet 10 mg PO DAILY 03/30/20 02/01/25 Unknown History bisoprolol 2.5 1 tab PO DAILY 03/29/21 02/01/25 Unknown History mg-hydrochlorothiazide 6.25 mg tablet aspirin 81 mg tablet,delayed 81 mg PO DAILY 02/01/25 02/01/25 Unknown History release Exam Airway Mallampati Class: II TM Dist: >3cm Neck ROM: Full Assessment and Plan Assessment Anesthesia Assessment: Anesthesia Plan Discussed Final Anesthetic Review Family History of Problems with Anesthesia: No History of Problems with Anesthesia: No NPO: Yes ASA Class: II Final Preanesthetic Review: No Changes in Pt Med Stat, Meds/Allgs Chart Reviewed, Consent Obtained/Reviewed and Anes Risks/Benef Reviewed Patient Risk: Low Procedure Risk: Low Anesthetic Plan Anesthetic Plan: TIVA Disposition: Standard PACU
[2025-02-03 08:39] VITALS: BMI 26.3
[2025-02-03] MEDS: Lactated Ringers 1,000 ML 100 ML IVCONT (08:51)
[2025-02-03 08:52] VITALS: BP 138/63; PULSE 52; RESP 18; TEMP 36.6; O2SAT 100
--- NOTE | 2025-02-03 10:03 | P.BOP_ITS ---
Brief Operative Note Date of Service: 02/03/25 Pre-op diagnosis: Screening Post-op diagnosis: other (Diverticulosis) Procedure: Colonoscopy to the cecum and TI Surgeon: Ryan Blakely MD Anesthesia: MAC Was an Commercial Helicopter Pilot used for this Procedure?: No Estimated blood loss (mL): 0 Pathology: none sent Condition: stable Disposition: PACU
[2025-02-03 10:04] VITALS: BP 123/54; PULSE 64; RESP 17; TEMP 36.6; O2SAT 98
[2025-02-03 10:15] VITALS: BP 130/68; PULSE 57; RESP 17; O2SAT 100
--- NOTE | 2025-02-03 10:18 | OP_ITS ---
DATE OF SERVICE: 02/03/2025 SURGEON: Ryan Blakely MD INDICATIONS: Patient presents for evaluation of personal history of tubular adenoma of the colon and colorectal cancer screening. Full consent has been obtained from him for this, including risks of bleeding and perforation. PREOPERATIVE DIAGNOSIS: POSTOPERATIVE DIAGNOSIS: PROCEDURE PERFORMED: Colonoscopy to cecum and terminal ileum. ESTIMATED BLOOD LOSS: COMPLICATIONS: ANESTHESIA: Medication used, monitored anesthesia care. ASSISTANTS: SPECIMENS: PREOPERATIVE DIAGNOSES: Colorectal cancer screening and personal history of tubular adenoma of the colon. POSTOPERATIVE DIAGNOSES: Colorectal cancer screening and personal history of tubular adenoma of the colon, diverticulosis, and internal hemorrhoids. DESCRIPTION OF PROCEDURE: The patient was placed in the left lateral decubitus position. The digital rectal exam revealed no abnormalities. The Olympus video pediatric colonoscope was entered into the rectum and advanced easily to the cecum. Once in the cecum, I did identify normal-appearing cecal pouch with appendiceal orifice and a normal-appearing ileocecal valve. The terminal ileum was cannulated and appeared normal. The scope was withdrawn back in the colon. The entire cecum and ileocecal valve appeared normal. The scope was slowly withdrawn assessing all mucosal surfaces carefully. Preparation was excellent. I did not visualize any sign of polyps, colitis, nor angiodysplasia. There was a mild amount of sigmoid diverticulosis. In the rectum, scope was retroflexed visualizing internal hemorrhoids, but no other pathology. The rectal mucosa appeared normal. Scope was straightened and withdrawn from the patient. He tolerated the procedure well and was returned to the recovery area in stable condition. IMPRESSION: 1. Diverticulosis. 2. Internal hemorrhoids. PLAN: Given the negative exam and his age, I do not think, he would need any further screening colonoscopies. He will otherwise see me on a p.r.n. basis. He was advised that he could resume his aspirin and fish oil today. Ryan Blakely MD RMW/MODL / [id number]
== END 2025-02-03 10:48 | disposition home or self-care (01) ==
PROVIDERS: PCP Internal Medicine Medical Oncology; Visit Provider Internal Medicine
PROC: 0DJD8ZZ Inspection of Lower Intestinal Tract, Via Natural or Artificial Opening Endoscopic (ICD-10-PCS; CPT 45378; principal; 2025-02-03 09:30)
DX: Z12.11 Encounter for screening for malignant neoplasm of colon (principal); K57.30 Diverticulosis of large intestine without perforation or abscess without bleeding; K64.8 Other hemorrhoids; Z86.0101 Personal history of adenomatous and serrated colon polyps; I10 Essential (primary) hypertension; E78.5 Hyperlipidemia, unspecified; I48.91 Unspecified atrial fibrillation; Z79.82 Long term (current) use of aspirin; Z79.899 Other long term (current) drug therapy
CPT/HCPCS: G0105; J2003; J2704